=== PATIENT | male | born 1950 | race Caucasian/White ===

== ENCOUNTER 2016-10-25 03:25 | Observation (INO) | payer OTHER ==
[~2016-10-25] VITALS: Ht 182.9 cm; Wt 74.0 kg
[2016-10-25] MEDS ORDERED: COZAAR100 MG PO (04:58)
[2016-10-25] MEDS ORDERED: LOPRESSOR100 MG PO (04:58)
[2016-10-25] MEDS ORDERED: LEVOTHYROXINE88 MCG PO (04:59)
[2016-10-25] MEDS ORDERED: CATAPRES 0.1MG0.1 MG PO (05:01)
[2016-10-25] MEDS ORDERED: SIMVASTATIN20 MG PO (05:01)
[2016-10-25] MEDS ORDERED: FLEXERIL 10 MG10 MG PO (05:02)
[2016-10-25] MEDS ORDERED: TRAMADOL HCL50 MG PO (05:02)
[2016-10-25] MEDS ORDERED: OMEPRAZOLE20 M1 PO (05:02)
[2016-10-25] MEDS ORDERED: CITALOPRAM HBR20 MG PO (05:03)
[2016-10-25 12:52] LABS: HEMOGLOBIN 11.4 gm/dl (14.0-17.5); RED BLOOD COUNT 3.8 M/UL (4.20-5.50); WHITE BLOOD COUNT 15.1 K/UL (4.5-11.0)
[2016-10-25 13:10] LABS: BUN/CREATININE RATIO 11 (0-10)
[2016-10-26 06:00] LABS: HEMOGLOBIN 10.8 gm/dl (14.0-17.5); RED BLOOD COUNT 3.7 M/UL (4.20-5.50)
[2016-10-26 06:26] LABS: BUN/CREATININE RATIO 14 (0-10)
[2016-10-27] MEDS ORDERED: MIRALAX17 GM PO (12:40)
[2016-10-27] MEDS ORDERED: SENOKOT-S TABL1 EACH PO (12:40)
[2016-10-27] MEDS ORDERED: ASPIR 8181 MG PO (12:40)
== END 2016-10-27 13:07 | disposition home or self-care (01) ==
LOC: PROG CARE 03:48 → MED SURG 4 14:10
PROVIDERS: Internal Medicine; ADMIT Internal Medicine
DX: R07.89 Other chest pain (principal); K59.00 Constipation, unspecified; R11.2 Nausea with vomiting, unspecified; D72.829 Elevated white blood cell count, unspecified; I12.9 Hypertensive chronic kidney disease with stage 1 through stage 4 chronic kidney disease, or unspecified chronic kidney disease; N18.3 Chronic kidney disease, stage 3 (moderate); E78.5 Hyperlipidemia, unspecified; E03.9 Hypothyroidism, unspecified; K21.9 Gastro-esophageal reflux disease without esophagitis; Z87.442 Personal history of urinary calculi; Z88.8 Allergy status to other drugs, medicaments and biological substances; Z79.82 Long term (current) use of aspirin; Z79.899 Other long term (current) drug therapy
CPT/HCPCS: ECHO; 36415; 78452; 80048; 80053; 80061; 82550; 82553; 83036; 83630; 83690; 84484; 85027; 87045; 87046; 89055; 93005; 93017; 93306; 96372; 96374; 96375; 96376; A9502; G0378; G0379; J0360; J1650; J2270; J2405; J2550; J2785; J7050

== ENCOUNTER → 2021-04-07 | Day surgery (SDC) | payer MEDICARE, OTHER ==
[~2021-04-07] MED LIST: ASPIR 8181 MG PO; ASPIRIN 325MG325 MG PO; ATORVASTATIN CA80 MG PO; CATAPRES 0.1MG0.1 MG PO; CITALOPRAM HBR20 MG PO; COZAAR100 MG PO; FLEXERIL 10 MG10 MG PO; FLOMAX 0.4 MG0.4 MG PO; LEVOTHYROXINE88 MCG PO; LOPRESSOR100 MG PO; MIRALAX17 GM PO; OMEPRAZOLE20 M1 PO; SENOKOT-S TABL1 EACH PO; SIMVASTATIN20 MG PO; TRAMADOL HCL50 MG PO; ZOFRAN ODT 4 MG4 MG GT
== END | disposition home or self-care (01) ==
LOC: OR 07:30
DX: K94.23 Gastrostomy malfunction (principal); K22.2 Esophageal obstruction; E03.9 Hypothyroidism, unspecified; E78.5 Hyperlipidemia, unspecified; F32.9 Major depressive disorder, single episode, unspecified; I10 Essential (primary) hypertension; K21.9 Gastro-esophageal reflux disease without esophagitis; M81.0 Age-related osteoporosis without current pathological fracture; Z87.891 Personal history of nicotine dependence; Z86.73 Personal history of transient ischemic attack (TIA), and cerebral infarction without residual deficits; Z88.5 Allergy status to narcotic agent; Z79.82 Long term (current) use of aspirin; Z79.899 Other long term (current) drug therapy
CPT/HCPCS: J2704; J7040